=== PATIENT | female | born 1995 | race Caucasian/White ===

== ENCOUNTER 2023-01-03 11:44 | Emergency (ER) | payer SELFPAY ==
[~2023-01-03] VITALS: Ht 170.2 cm; Wt 81.6 kg
[2023-01-03] MEDS ORDERED: KETOROLAC TROMETHAMINE 30 MG/ML VIAL ONE ×2 (13:13→18:36)
[2023-01-03] MEDS ORDERED: SODIUM CHLORIDE 0.9% 1000ML 1,000 ML ONE (13:13)
[2023-01-03] MEDS ORDERED: ONDANSETRON HCL INJ 2MG/ML 2ML 2 MG/ML VIAL ONE ×2 (13:13→14:18)
[2023-01-03] MEDS ORDERED: FAMOTIDINE 20 MG/2 ML VIAL IV ONE (13:14)
[2023-01-03] MEDS ORDERED: KETOROLAC TROMETHAMINE 30 MG/ML VIAL IV STA ×2 (13:35→18:38)
[2023-01-03] MEDS ORDERED: FAMOTIDINE 20 MG/2 ML VIAL IV STA (13:35)
[2023-01-03] MEDS ORDERED: ONDANSETRON HCL INJ 2MG/ML 2ML 2 MG/ML VIAL IV STA ×2 (13:35→14:04)
[2023-01-03] MEDS ORDERED: SODIUM CHLORIDE 0.9% 1000ML 1,000 ML IV ONE (13:45)
[2023-01-03] MEDS ORDERED: Morphine 4mg INJECTION 4 MG/ML INJ IV ONE (14:15)
[2023-01-03] MEDS ORDERED: Morphine 4mg INJECTION 4 MG/ML INJ ONE (14:18)
[2023-01-03] MEDS ORDERED: IOPAMIDOL 370 MG/ML 100 ML INFUS..BTL INJ ONE (14:37)
[2023-01-03] MEDS ORDERED: PROMETHAZINE 25MG/ NS 50ML (IV) IV ONE (14:45)
[2023-01-03] MEDS ORDERED: CEFTRIAXONE 1 GM VIAL ONE (15:24)
[2023-01-03] MEDS ORDERED: PROMETHAZINE HCL (IM) 25 MG/ML VIAL IM ONE (15:24)
[2023-01-03] MEDS ORDERED: TAMSULOSIN HCL 0.4 MG CAP PO ONE (17:30)
[2023-01-03] MEDS ORDERED: SODIUM CHLORIDE 0.9% 500ML 500 ML ONE (18:36)
[2023-01-03] MEDS ORDERED: METOCLOPRAMIDE HCL 10 MG/2ML VIAL ONE (18:36)
[2023-01-03] MEDS ORDERED: METOCLOPRAMIDE HCL 10 MG/2ML VIAL IV ONE (18:45)
[2023-01-03] MEDS ORDERED: SODIUM CHLORIDE 0.9% 500ML 500 ML IV ONE (19:15)
[2023-01-03 19:34] VITALS: BP 137/85
== END 2023-01-03 19:52 | disposition short-term general hospital (02) ==
LOC: FSED 11:53
DX: N20.1 Calculus of ureter (principal); N20.0 Calculus of kidney; D72.829 Elevated white blood cell count, unspecified; R11.2 Nausea with vomiting, unspecified; Z91.041 Radiographic dye allergy status
CPT/HCPCS: 74176; 80048; 80076; 81003; 81025; 85025; 87086; 96374; 96375; 96376; 99284; J0696; J1885; J2270; J2405; J2550; J2765; J7030; J7040; 93005; Q9967